=== PATIENT | male | born 1950 | race Two or more races ===

== ENCOUNTER 2018-02-26 11:03 | Inpatient (IN) | payer OTHER ==
[~2018-02-26] VITALS: Ht 175.3 cm; Wt 95.3 kg
[~2018-02-26 11:03] MED LIST: TENORMIN100 MG PO
[2018-02-26] MEDS ORDERED: IRBESARTAN150 MG PO (11:19)
[2018-02-26] MEDS ORDERED: SIMVASTATIN40 MG PO (11:20)
[2018-02-26] MEDS ORDERED: INVOKANA100 MG PO (11:20)
[2018-02-26] MEDS ORDERED: GABAPENTIN800 MG PO (11:20)
[2018-02-26] MEDS ORDERED: GLIMEPIRIDE4 MG PO (11:21)
== END 2018-02-28 13:00 | disposition home or self-care (01) | DRG 64 ==
LOC: ER 11:03 → MEDJ 17:23
PROC: 3E0F7GC Introduction of Other Therapeutic Substance into Respiratory Tract, Via Natural or Artificial Opening (ICD-10-PCS; principal; 2018-02-26)
PROC: BW28ZZZ Computerized Tomography (CT Scan) of Head (ICD-10-PCS; 2018-02-26)
PROC: BW24ZZZ Computerized Tomography (CT Scan) of Chest and Abdomen (ICD-10-PCS; 2018-02-26)
PROC: B030ZZZ Magnetic Resonance Imaging (MRI) of Brain (ICD-10-PCS; 2018-02-26)
PROC: B345ZZZ Ultrasonography of Bilateral Common Carotid Arteries (ICD-10-PCS; 2018-02-26)
PROC: B348ZZZ Ultrasonography of Bilateral Internal Carotid Arteries (ICD-10-PCS; 2018-02-26)
PROC: B246ZZZ Ultrasonography of Right and Left Heart (ICD-10-PCS; 2018-02-27)
DX: I63.522 Cerebral infarction due to unspecified occlusion or stenosis of left anterior cerebral artery (principal); I50.33 Acute on chronic diastolic (congestive) heart failure; I21.4 Non-ST elevation (NSTEMI) myocardial infarction; R47.81 Slurred speech; I11.0 Hypertensive heart disease with heart failure; I34.0 Nonrheumatic mitral (valve) insufficiency; I25.10 Atherosclerotic heart disease of native coronary artery without angina pectoris
CPT/HCPCS: 70544

== ENCOUNTER 2018-04-01 08:32 | Emergency (ER) | payer OTHER ==
[~2018-04-01] VITALS: Ht 175.3 cm; Wt 94.8 kg
[~2018-04-01 08:32] MED LIST changes: +GABAPENTIN800 MG PO; +GLIMEPIRIDE4 MG PO; +INVOKANA100 MG PO; +IRBESARTAN150 MG PO; +SIMVASTATIN40 MG PO
[2018-04-01] MEDS ORDERED: XOPENEX HFA15 GM IH (16:05)
== END 2018-04-01 16:14 | disposition home or self-care (01) ==
LOC: ER 08:32 → CPU-OBS 08:42 → ER 16:14
DX: R07.89 Other chest pain (principal); R06.2 Wheezing; R06.02 Shortness of breath; Z95.1 Presence of aortocoronary bypass graft

== ENCOUNTER 2019-01-22 08:02 | Outpatient (CLI) | payer OTHER ==
[~2019-01-22 08:02] MED LIST changes: +XOPENEX HFA15 GM IH
== END 2019-01-22 09:13 | disposition home or self-care (01) ==
LOC: SONOGRAMA 08:02 → MAMO-SONO 08:15 → SONOGRAMA 09:13
DX: N18.2 Chronic kidney disease, stage 2 (mild) (principal)

== ENCOUNTER 2019-01-22 08:51 | Outpatient (CLI) | payer OTHER | END 2019-01-22 09:00 | disposition home or self-care (01) | LOC: LAB 08:51 | DX: N18.2 Chronic kidney disease, stage 2 (mild) (principal); E11.21 Type 2 diabetes mellitus with diabetic nephropathy; I10 Essential (primary) hypertension; C61 Malignant neoplasm of prostate; E89.5 Postprocedural testicular hypofunction ==

== ENCOUNTER 2024-05-12 10:21 | Emergency (ER) | payer OTHER ==
[~2024-05-12] VITALS: Ht 177.8 cm; Wt 90.7 kg
[2024-05-12] MEDS ORDERED: PLAVIX75 MG (11:03)
[2024-05-12] MEDS ORDERED: TOPROL XL25 M1 (11:03)
[2024-05-12] MEDS ORDERED: DEXAMETHASONE SODIUM PHOSPHATE 4 MG/ML VIAL IV STA (11:30)
[2024-05-12] MEDS ORDERED: MECLIZINE HCL 25 MG TABLET PO STA (11:30)
[2024-05-12 11:58] LABS: HEMATOCRIT 42.5 % (39.0-48.0); HEMOGLOBIN 14.6 g/dL (13-16.00); MEAN CORPUSCULAR HGB CONC 34.5 g/dl (32.0-36.0); PLATELET COUNT 160 K/uL (150-450); RED BLOOD COUNT 4.72 M/uL (4.00-6.00); RED CELL DISTRIBUTION WIDTH 14.5 % (11.5-14.5)
[2024-05-12 12:25] LABS: CALCIUM 9.2 mg/dL (8.5-10.1); CREATININE SERUM 0.98 mg/dL (0.70-1.30); GFR 74.77; POTASSIUM 3.83 mEq/L (3.5-5.1)
== END 2024-05-12 14:32 | disposition home or self-care (01) ==
LOC: ER 10:23
PROVIDERS: General Practice
DX: R42 Dizziness and giddiness (principal); E11.9 Type 2 diabetes mellitus without complications; Z79.84 Long term (current) use of oral hypoglycemic drugs; I50.9 Heart failure, unspecified; Z88.0 Allergy status to penicillin
CPT/HCPCS: 36415; 70450; 93005; 96365; 99284; J1100